=== PATIENT | female | born 1995 | race Caucasian/White ===

== ENCOUNTER 2017-05-12 12:47 | Emergency (ER) | payer OTHER ==
[~2017-05-12 12:47] MED LIST: ANTIBIOTIC; DEPO-PROVER150 MG/M1; EC-NAPROSYN500 MG PO; FIORICET 50-321 EACH PO; IMITREX PO; LITHIUM; LITHIUM PO; MEDROL DOSEPAK4 MG PO; MONISTAT VG; MOTRIN600 MG PO; MULTI-VITAMIN1 EAC1 PO; NAPROSYN500 MG PO; NO MEDICATIONS; NORFLEX100 M1 PO; OMEPRAZOLE40 M1 PO; PRENATAL1 TA1 PO; PRILOSEC20 MG PO; ROBAXIN500 MG PO; TUMS CALCI300 MG( 75; TYLENOL #3 PO; VITAMIN D50000 UNIT PO; VOLTAREN50 MG PO; VOLTAREN75 MG PO; ZITHROMAX PO; ZOVIRAX200 M1 PO; [UNRECOGNIZED DRUG - OTHER] PO
[2017-05-12] MEDS ORDERED: NO MEDICATIONS (13:03)
== END 2017-05-12 13:58 | disposition home or self-care (01) ==
LOC: SED 12:47
DX: O62.9 Abnormality of forces of labor, unspecified (principal); O99.333 Smoking (tobacco) complicating pregnancy, third trimester; F17.200 Nicotine dependence, unspecified, uncomplicated; Z3A.37 37 weeks gestation of pregnancy; Z88.2 Allergy status to sulfonamides
CPT/HCPCS: 99284

== ENCOUNTER 2017-05-14 16:52 | Emergency (ER) | payer OTHER ==
[~2017-05-14] VITALS: Ht 157.5 cm; Wt 59.0 kg
== END 2017-05-14 17:24 | disposition home or self-care (01) ==
LOC: SED 16:52
DX: O99.89 Other specified diseases and conditions complicating pregnancy, childbirth and the puerperium (principal); R10.2 Pelvic and perineal pain; O99.333 Smoking (tobacco) complicating pregnancy, third trimester; F17.200 Nicotine dependence, unspecified, uncomplicated; Z88.2 Allergy status to sulfonamides; Z3A.36 36 weeks gestation of pregnancy
CPT/HCPCS: 99283